=== PATIENT | female | born 1980 | race Caucasian/White ===

== ENCOUNTER → 2018-04-30 | Outpatient (CLI) | payer MEDICAID | END | disposition home or self-care (01) | LOC: U/S 11:40 | DX: N91.2 Amenorrhea, unspecified (principal); Z32.01 Encounter for pregnancy test, result positive | CPT/HCPCS: 76801; 76817 ==

== ENCOUNTER 2018-11-20 17:45 | Inpatient (IN) | payer MEDICAID ==
[2018-11-20] MEDS ORDERED: GLUCOSE GEL 15 GRAM TUBE BUCCAL (23:00)
[2018-11-20] MEDS ORDERED: GLUCAGON 1 MG INJ IM (23:00)
[2018-11-20] MEDS ORDERED: GLUCOSE GEL 15 GRAM TUBE PO ×2 (23:00)
[2018-11-20] MEDS ORDERED: DEXTROSE 50% 50 ML SYRINGE IV ×2 (23:00)
[2018-11-21] MEDS ORDERED: INSULIN ASPART [NOVOLOG] 3 ML PEN SC ×4 (01:05→17:35)
[2018-11-21] MEDS: NPH, HUMAN INSULIN ISOPHANE 3ML VIAL SC ×3 (01:23→18:39)
[2018-11-21] MEDS ORDERED: NPH, HUMAN INSULIN ISOPHANE 3ML VIAL SC ×3 (08:00→20:00)
[2018-11-21] MEDS: INSULIN ASPART [NOVOLOG] 3 ML PEN SC ×3 (09:21→20:26)
[2018-11-21] MEDS: LACTATED RINGER'S 1,000 ML IV ×2 (11:55→18:22)
[2018-11-21] MEDS: BETAMET NA PHOS/AC(6 MG/ML) 2 ML INJ SYG IM (18:01)
[2018-11-21] MEDS: ACCU-CHEK XX (18:40)
[2018-11-22] MEDS: LACTATED RINGER'S 1,000 ML IV ×3 (04:07→20:38)
[2018-11-22] MEDS: INSULIN ASPART [NOVOLOG] 3 ML PEN SC ×6 (08:34→21:00)
[2018-11-22] MEDS: NPH, HUMAN INSULIN ISOPHANE 3ML VIAL SC (08:36)
[2018-11-22] MEDS: BETAMET NA PHOS/AC(6 MG/ML) 2 ML INJ SYG IM (18:20)
[2018-11-22] MEDS: ACCU-CHEK XX ×3 (20:36→22:39)
[2018-11-22] MEDS: INSULIN ISOPHANE (NPH) 10 ML INJ SC (20:53)
[2018-11-23] MEDS: LACTATED RINGER'S 1,000 ML IV ×3 (04:18→19:02)
[2018-11-23] MEDS ORDERED: morphine SULFATE/PF (10 MG/10 ML) INJ (07:00)
[2018-11-23] MEDS ORDERED: OXYTOCIN 30 UNITS/LR 500 ML BAG IV (07:00)
[2018-11-23] MEDS: INSULIN ASPART [NOVOLOG] 3 ML PEN SC ×6 (07:05→21:00)
[2018-11-23] MEDS: ACCU-CHEK XX ×3 (07:52→14:20)
[2018-11-23] MEDS: NPH, HUMAN INSULIN ISOPHANE 3ML VIAL SC (07:58)
[2018-11-23] MEDS ORDERED: MISOPROSTOL 200 MCG TAB PR ×2 (16:30→20:30)
[2018-11-23] MEDS ORDERED: CARBOPROST 250 MCG INJ IM ×2 (16:30→20:30)
[2018-11-23] MEDS ORDERED: METHYLERGONOVINE 0.2 MG INJ IM ×2 (16:30→20:30)
[2018-11-23] MEDS ORDERED: OXYTOCIN 30 UNITS/LR 500 ML IV ×3 (16:30→20:30)
[2018-11-23 17:37] LABS: ADD MAN DIFF? NO
[2018-11-23 17:39] LABS: BASOPHILS % 0.2 % (0.0-2.0); HEMATOCRIT 32.8 % (37.0-47.0); HEMOGLOBIN 10.4 g/dl (12.0-16.0); LYMPHOCYTES # 1.4 10^3/ul (0.8-2.9); LYMPHOCYTES % 16.9 % (15.0-51.0); MEAN CORPUSCULAR HEMOGLOBIN 28.3 pg (29.0-33.0); MEAN CORPUSCULAR HGB CONC 31.7 g/dl (32.0-37.0); MEAN CORPUSCULAR VOLUME 89.1 fl (82.0-101.0); MEAN PLATELET VOLUME 11.6 fl (7.4-10.4); MONOCYTE # 0.7 10^3/ul (0.3-0.9); MONOCYTES % 8.1 % (0.0-11.0); NEUTROPHILS % 72.7 % (39.0-77.0); NUCLEATED RED BLOOD CELLS% 0.2 /100WBC (0.0-0.0); PLATELET COUNT 220 10^3/UL (140-415); RED BLOOD COUNT 3.68 10^6/ul (4.20-5.40); RED CELL DISTRIBUTION WIDTH 15.1 % (11.5-14.5)
[2018-11-23 17:39] LABS: WHITE BLOOD COUNT 8.3 10^3/ul (4.8-10.8)
[2018-11-23 18:01] LABS: INR 0.81; PROTIME 11.3 Sec (11.9-14.9); PT RATIO 0.9
[2018-11-23 18:02] LABS: PARTIAL THROMBOPLASTIN TIME 22.7 Sec (23.0-35.0)
[2018-11-23] MEDS ORDERED: KETOROLAC 30 MG INJ IV (19:00)
[2018-11-23] MEDS ORDERED: FENTAnyl 50 MCG/ML VIAL IV ×2 (19:00)
[2018-11-23] MEDS ORDERED: ONDANSETRON 4 MG INJ IV ×2 (19:00)
[2018-11-23] MEDS ORDERED: HYDROmorphONE 0.5 MG/0.5 ML SYG IV ×2 (19:00)
[2018-11-23] MEDS ORDERED: ZOLPIDEM 5 MG TAB PO (19:00)
[2018-11-23] MEDS ORDERED: NALOXONE (0.4 MG/ML) INJ IV (19:00)
[2018-11-23] MEDS ORDERED: DIPHENHYDRAMINE 50 MG INJ IV ×2 (19:00)
[2018-11-23] MEDS ORDERED: HYDROmorphONE 1 MG/5 ML IV SYRINGE IV ×3 (19:00)
[2018-11-23] MEDS ORDERED: EPINEPHrine 1 MG INJ (19:03)
[2018-11-23] MEDS: ONDANSETRON 4 MG INJ IV (19:51)
[2018-11-23] MEDS: FAMOTIDINE 20 MG INJ IV (19:51)
[2018-11-23] MEDS: METOCLOPRAMIDE 10 MG INJ IV (19:51)
[2018-11-23] MEDS ORDERED: DEXTROSE 5%-LR 1,000 ML IV (20:22)
[2018-11-23] MEDS ORDERED: METHYLERGONOVINE 0.2 MG TAB PO (20:30)
[2018-11-23] MEDS ORDERED: NPH, HUMAN INSULIN ISOPHANE 3ML VIAL SC ×2 (21:00)
[2018-11-23] MEDS ORDERED: FENTAnyl 50 MCG/ML VIAL (21:05)
[2018-11-23] MEDS: OXYTOCIN 30 UNITS/LR 500 ML IV (22:06)
[2018-11-23] MEDS: CEFAZOLIN 2 GM/50 ML (PMX) 50 ML IVPB (22:27)
[2018-11-24] MEDS: IBUPROFEN 800 MG TAB PO ×4 (00:47→21:53)
[2018-11-24] MEDS: SENNA/DOCUSATE NA (8.6MG/50MG) TAB PO ×3 (00:47→21:52)
[2018-11-24] MEDS: OXYTOCIN 30 UNITS/LR 500 ML IV (06:20)
[2018-11-24] MEDS ORDERED: CARBOPROST 250 MCG INJ (07:00)
[2018-11-24] MEDS ORDERED: METHYLERGONOVINE 0.2 MG INJ (07:00)
[2018-11-24 07:40] LABS: ADD MAN DIFF? NO
[2018-11-24 07:42] LABS: WHITE BLOOD COUNT 9.9 10^3/ul (4.8-10.8)
[2018-11-24 07:42] LABS: BASOPHILS % 0.3 % (0.0-2.0); HEMATOCRIT 32.9 % (37.0-47.0); HEMOGLOBIN 10.6 g/dl (12.0-16.0); LYMPHOCYTES # 1.6 10^3/ul (0.8-2.9); LYMPHOCYTES % 16.1 % (15.0-51.0); MEAN CORPUSCULAR HEMOGLOBIN 28.3 pg (29.0-33.0); MEAN CORPUSCULAR HGB CONC 32.2 g/dl (32.0-37.0); MEAN PLATELET VOLUME 11.7 fl (7.4-10.4); MONOCYTE # 0.8 10^3/ul (0.3-0.9); MONOCYTES % 8.3 % (0.0-11.0); NEUTROPHIL # 7.4 10^3/ul (1.6-7.5); NUCLEATED RED BLOOD CELLS% 0.2 /100WBC (0.0-0.0); PLATELET COUNT 226 10^3/UL (140-415); RED BLOOD COUNT 3.74 10^6/ul (4.20-5.40); RED CELL DISTRIBUTION WIDTH 15.1 % (11.5-14.5)
[2018-11-24] MEDS ORDERED: NPH, HUMAN INSULIN ISOPHANE 3ML VIAL SC (08:00)
[2018-11-24] MEDS: DIPHTH/TET/ACEL PERTUSS (ADULT) 0.5 ML VIAL IM* (11:00)
[2018-11-24] MEDS: HYDROCODONE/APAP (5/325) TAB GTB ×2 (14:00→21:53)
[2018-11-24] MEDS: KETOROLAC 30 MG INJ IV (17:28)
[2018-11-24 18:53] LABS: RAPID PLASMA REAGIN NONREACTIVE (NR)
[2018-11-24] MEDS ORDERED: MAGNESIUM HYDROXIDE 30ML CUP PO (19:30)
[2018-11-24] MEDS ORDERED: HYDROCODONE/APAP (5/325) TAB NGT (20:00)
[2018-11-24] MEDS: INSULIN ASPART [NOVOLOG] 3 ML PEN SC (21:20)
[2018-11-25] MEDS: HYDROCODONE/APAP (5/325) TAB GTB ×3 (05:51→21:20)
[2018-11-25] MEDS: IBUPROFEN 800 MG TAB PO ×3 (05:52→21:20)
[2018-11-25] MEDS: INSULIN ASPART [NOVOLOG] 3 ML PEN SC ×6 (08:00→21:00)
[2018-11-25] MEDS: SENNA/DOCUSATE NA (8.6MG/50MG) TAB PO ×2 (09:00→21:20)
[2018-11-25] MEDS: DOCUSATE SODIUM 100 MG CAP PO (13:34)
[2018-11-25] MEDS: MAGNESIUM HYDROXIDE 30ML CUP PO (13:35)
[2018-11-26] MEDS: HYDROCODONE/APAP (5/325) TAB PO ×5 (01:41→21:14)
[2018-11-26] MEDS: LACTATED RINGER'S 500 ML IV ×7 (01:42→17:30)
[2018-11-26] MEDS: HYDROCODONE/APAP (5/325) TAB GTB (06:21)
[2018-11-26] MEDS: IBUPROFEN 800 MG TAB PO ×3 (06:22→21:13)
[2018-11-26] MEDS ORDERED: DIPHTH/TET/ACEL PERTUSS (ADULT) 0.5 ML VIAL IM* (09:00)
[2018-11-26] MEDS ORDERED: MEASLES,MUMPS,RUBELLA VACCINE INJ SC* (09:00)
[2018-11-26] MEDS: SENNA/DOCUSATE NA (8.6MG/50MG) TAB PO ×2 (09:16→21:13)
[2018-11-26] MEDS: LANOLIN HPA 1 PKT TOP (09:16)
[2018-11-26] MEDS: LACTATED RINGER'S 1,000 ML IV (13:46)
[2018-11-26] MEDS ORDERED: DIPHTH/TET/ACEL PERTUSS (ADULT) 0.5 ML VIAL (17:33)
[2018-11-26] MEDS: INSULIN ASPART [NOVOLOG] 3 ML PEN SC ×4 (17:35→21:00)
[2018-11-26] MEDS: DIPHTH/TET/ACEL PERTUSS (ADULT) 0.5 ML VIAL IM* (17:45)
[2018-11-27] MEDS: HYDROCODONE/APAP (5/325) TAB PO ×4 (03:15→13:48)
[2018-11-27] MEDS: IBUPROFEN 800 MG TAB PO ×2 (05:20→13:48)
[2018-11-27] MEDS: INSULIN ASPART [NOVOLOG] 3 ML PEN SC ×2 (07:35→11:20)
[2018-11-27] MEDS: SENNA/DOCUSATE NA (8.6MG/50MG) TAB PO (09:42)
== END 2018-11-27 16:05 | disposition home or self-care (01) | DRG 785 ==
LOC: OBT 17:45 → L-D 17:46 → PP1 11-24 00:13 → L-D 11-23 20:06
PROVIDERS: Obstetrics & Gynecology
PROC: 10D00Z1 Extraction of Products of Conception, Low, Open Approach (ICD-10-PCS; principal; 2018-11-23 20:00)
PROC: 0UB70ZZ Excision of Bilateral Fallopian Tubes, Open Approach (ICD-10-PCS; 2018-11-23 20:00)
DX: O24.424 Gestational diabetes mellitus in childbirth, insulin controlled (principal); O76 Abnormality in fetal heart rate and rhythm complicating labor and delivery; O34.211 Maternal care for low transverse scar from previous cesarean delivery; O99.214 Obesity complicating childbirth; Z3A.35 35 weeks gestation of pregnancy; Z37.0 Single live birth; Z30.2 Encounter for sterilization
CPT/HCPCS: 76818; 82962; 85025; 85610; 85730; 86592; 86850; 86900; 86901; 86920; 88302; 90715; 99464